=== PATIENT | female | born 1940 | race Caucasian/White ===

== ENCOUNTER 2024-02-17 18:42 | Emergency (ER) | payer MEDICARE ==
[~2024-02-17] VITALS: Ht 149.9 cm; Wt 66.7 kg
== END 2024-02-17 20:40 | disposition home or self-care (01) ==
LOC: ER 18:42
DX: S81.802A Unspecified open wound, left lower leg, initial encounter (principal); W18.30XA Fall on same level, unspecified, initial encounter
CPT/HCPCS: 12002; 99282-25